=== PATIENT | female | born 1960 | race Caucasian/White ===

== ENCOUNTER 2017-09-03 16:06 | Emergency (ER) | payer BC ==
[~2017-09-03] VITALS: Ht 160 cm; Wt 51.3 kg
[2017-09-03 16:09] VITALS: BP 170/87
== END 2017-09-03 17:25 | disposition home or self-care (01) ==
LOC: ED 16:06
DX: S69.91XA Unspecified injury of right wrist, hand and finger(s), initial encounter (principal); M25.431 Effusion, right wrist; F17.200 Nicotine dependence, unspecified, uncomplicated; Z98.890 Other specified postprocedural states; X50.1XXA Overexertion from prolonged static or awkward postures, initial encounter; Y93.89 Activity, other specified; Y92.89 Other specified places as the place of occurrence of the external cause; Y99.9 Unspecified external cause status

== ENCOUNTER → 2018-01-01 | Outpatient (CLI) | payer BC | END | disposition home or self-care (01) | LOC: CANPRECLI → ORTHO 04:44 | DX: M25.531 Pain in right wrist (principal) ==

== ENCOUNTER 2019-03-23 03:02 | Emergency (ER) | payer BC ==
[~2019-03-23] VITALS: Wt 52.2 kg
[2019-03-23 03:02] VITALS: BP 183/105
== END 2019-03-23 03:33 | disposition home or self-care (01) ==
LOC: ED 03:02
DX: S01.01XA Laceration without foreign body of scalp, initial encounter (principal); W01.0XXA Fall on same level from slipping, tripping and stumbling without subsequent striking against object, initial encounter; Y93.89 Activity, other specified; Y92.098 Other place in other non-institutional residence as the place of occurrence of the external cause; Y99.8 Other external cause status